=== PATIENT | female | born 1975 | race Caucasian/White ===

== ENCOUNTER 2019-04-28 08:04 | Outpatient (CLI) | payer BC ==
--- NOTE | 2019-05-01 08:01 | MMO ---
Bilateral MAMMO Bilat Screen [facility]. CLINICAL HISTORY: Patient is 43 years old and is seen for screening. The patient has no family history of breast cancer. The patient has no personal history of cancer. VIEWS: The views performed were: bilateral craniocaudal with tomosynthesis and bilateral mediolateral oblique with tomosynthesis. FILMS COMPARED: The present examination has been compared to prior imaging studies performed at [facility] on 03/09/2014, 04/11/2015 and 03/11/2017. MAMMOGRAM FINDINGS: The breasts are heterogeneously dense, which could obscure a lesion on mammography. New grouping of microcalcifications inner right breast mid depth best seen on mlo view. Mag views recommended. In the left breast, there are no suspicious masses, calcifications or areas of architectural distortion. IMPRESSION: FINDING IN THE RIGHT BREAST REQUIRES ADDITIONAL EVALUATION. ADDITIONAL IMAGING. THE RESULTS OF THIS EXAM WERE SENT TO THE PATIENT. ACR BI-RADS Category 0 - Incomplete: Need additional imaging evaluation. [facility] will notify the patient of the need for additional imaging services. MAMMOGRAPHY NOTE: 1. A negative mammogram report should not delay a biopsy if a dominant of clinically suspicious mass is present. 2. Approximately 10% to 15% of breast cancers are not detected by mammography. 3. Adenosis and dense breasts may obscure an underlying neoplasm.
== END 2019-04-28 08:05 | disposition home or self-care (01) ==
LOC: BICMAMMO 08:04
PROVIDERS: ATTEND Family Medicine
DX: Z12.31 Encounter for screening mammogram for malignant neoplasm of breast (principal)
CPT/HCPCS: 77063; 77067

== ENCOUNTER 2019-05-08 12:52 | Outpatient (CLI) | payer BC ==
--- NOTE | 2019-05-08 13:25 | MMO ---
Right Breast MAMMO Unilat Diag [facility]. CLINICAL HISTORY: Patient is 43 years old and is seen for additional evaluation requested at current screening. The patient has no family history of breast cancer. The patient has no personal history of cancer. VIEWS: The views performed were: right craniocaudal spot compression magnification; right mediolateral spot compression magnification; and right mediolateral with tomosynthesis. FILMS COMPARED: The present examination has been compared to prior imaging studies performed at [facility] on 04/28/2019, and at [facility] on 03/09/2014, 04/11/2015 and 03/11/2017. MAMMOGRAM FINDINGS: There are new pleomorphic cluster of calcifications that perist on additional views. IMPRESSION: FINDING IN THE RIGHT BREAST IS SUSPICIOUS. A STEREOTACTIC BREAST BIOPSY IS RECOMMENDED. RESULTS DISCUSSED WITH THE PATIENT AND DR. HUA. THE RESULTS OF THIS EXAM WERE SENT TO THE PATIENT. ACR BI-RADS Category 4 - Suspicious abnormality - biopsy should be considered MAMMOGRAPHY NOTE: 1. A negative mammogram report should not delay a biopsy if a dominant of clinically suspicious mass is present. 2. Approximately 10% to 15% of breast cancers are not detected by mammography. 3. Adenosis and dense breasts may obscure an underlying neoplasm. Reported by: NIKHIL BARLOW MD Electonically Signed: [id number]
== END 2019-05-08 12:53 | disposition home or self-care (01) ==
LOC: BICMAMMO 12:52
PROVIDERS: ATTEND Family Medicine
DX: N64.89 Other specified disorders of breast (principal)
CPT/HCPCS: G0279

== ENCOUNTER → 2019-05-26 | Day surgery (SDC) | payer BC ==
--- NOTE | 2019-05-26 08:39 | MMO ---
MAMMO Brst Bx Stereo History: Breast calcifications Comparison: Mammogram May 08, 2019 Findings: Patient was brought to the stereotactic suite. All questions are answered. Informed consent was obtained. Timeout performed. Patient's right breast was prepped and draped in normal sterile fashion. After adequate anesthesia a total of 8 10-gauge samples were obtained from the breast at the area of calcifications. Patient tolerated procedure well without complication. Of note there is layering of the calcifications in the dependent portion of the examination, suggesti ng milk of calcium, a benign entity. The amount of calcifications in the post clip mammogram were less than the preprocedural mammogram. Impression: 1. Technically successful stereotactic guided breast biopsy. 2. The amount of calcifications in the sample were faint. During the procedure, the calcifications di d layer forming a meniscus suggesting benign milk of calcium.
== END ==
LOC: MAMMO 06:59
PROVIDERS: ATTEND Family Medicine
PROC: 0HBT3ZX Excision of Right Breast, Percutaneous Approach, Diagnostic (ICD-10-PCS; principal; 2019-05-26)
DX: N62 Hypertrophy of breast (principal); R92.1 Mammographic calcification found on diagnostic imaging of breast
CPT/HCPCS: 19081; 76098; 88305; 88341; 88342

== ENCOUNTER 2019-06-17 07:31 | Outpatient (CLI) | payer BC ==
--- NOTE | 2019-06-17 15:03 | MRI ---
MRI BILATERAL BREASTS WITHOUT AND WITH CONTRAST: Date: 06/17/19 COMPARISON: Mammograms and stereotactic biopsy dated 05/26/19, 05/08/19, 04/28/19, and 03/11/17. HISTORY: Atypical lobular hyperplasia associated with right breast biopsy. TECHNIQUE: Multiplanar, multisequence MR images were obtained of the breasts without and with IV contrast. Evalu ation of this exam was done on a [employer] workstation. FINDINGS: Heterogeneously dense to extremely dense breast parenchyma is seen. Mild background parenchymal enhan cement is seen. There is an area of susceptibility artifact in the upper inner left breast which like ly represents the biopsy clip from previous stereotactic biopsy. No significant abnormal enhancement is seen in the right breast. No suspicious mass is seen in the right breast. There is a well circumscribed cyst n the anterior aspect of the left breast measuring 6 mm in greates t dimension. There is a [id number]-[id number] area of enhancement in the upper slightly medial left breast me asuring 5 mm in size. This demonstrates a Type II-Type III enhancement curve. No other abnormal areas of enhancement are seen in the left breast. No enlarged axillary lymph nodes are seen. No internal mammary lymph nodes are identified. The visual ized osseous structures and anterior liver are unremarkable. IMPRESSION: 1. There is a very small [id number]-gnus-[id number] area of enhancement in the left breast, which is likely benig n. BI-RADS Category 3 - probably benign finding. A 6 month follow-up MRI is recommended to ensure sta bility. 2. No abnormal enhancement in the right breast.
[2019-06-17] MEDS ORDERED: Gadobenate Dimeglumine 529 MG/1 ML (20ML VIAL) ONE (15:52)
== END 2019-06-17 07:32 | disposition home or self-care (01) ==
LOC: BICMRI 07:31
PROVIDERS: ATTEND Internal Medicine Hematology & Oncology
DX: N60.81 Other benign mammary dysplasias of right breast (principal)
CPT/HCPCS: A9577; C8908

== ENCOUNTER 2019-12-14 14:02 | Outpatient (CLI) | payer BC ==
--- NOTE | 2019-12-14 17:24 | MRI ---
MRI BILATERAL BREASTS WITHOUT AND WITH CONTRAST: Comparison: 06-17-19 History: Abnormal areas of enhancement in the upper inner left breast on prior MRI. Atypical ----- to the hypoplasia associated with prior breast biopsy. Technique: Multiplanar, multisequence MR images were obtained of the bilateral breasts without and wi th IV contrast. Assessment of this MRI was performed on a [employer] workstation with 3D MIP reformats a nd contrast enhanced images were generated. FINDINGS: Heterogeneously dense to extremely dense breast parenchyma is seen. No significant background parench ymal enhancement is seen. There is a tiny 2-3 mm area of enhancement in the upper aspect of the left breast seen on image 49 of 130. This is smaller than on the prior examination. No other abnormal areas of enhancement are seen in either breast. There is an area of susceptibility artifact in the right breast, likely from prior stereotactic biopsy clip. No axillary adenopathy is seen. No internal mammary lymph nodes are identified. Visualized anterior liver and osseous structures are unremarkable. IMPRESSION: 1. A tiny area of enhancement in the left breast has gotten smaller and is therefore benign. BIRADS c ategory 2 - benign findings. Annual screening mammography is recommended. POS: [facility]
== END 2019-12-14 14:03 | disposition home or self-care (01) ==
LOC: BICMRI 14:02
PROVIDERS: ATTEND Internal Medicine Hematology & Oncology
DX: N60.81 Other benign mammary dysplasias of right breast (principal)
CPT/HCPCS: A9577; C8908

== ENCOUNTER 2020-12-22 07:29 | Outpatient (CLI) | payer BC ==
--- NOTE | 2020-12-22 09:24 | MRI ---
EXAM: MRI of the breasts without and with contrast HISTORY: Precancerous cells removed from right breast in 2018. No current complaints. Lifetime risk o f breast cancer of 27.9%. COMPARISON: 12/14/2019; mammogram 06/20/2020 and 06/17/2019 TECHNIQUE: Multiplanar multisequence MR images were obtained of the breasts without and with IV contr ast. 3-D MIP reformats and contrast enhancement curves were generated on a [employer] workstation. FINDINGS: Heterogeneously dense breast parenchyma is seen. Minimal background parenchymal enhancement is seen. Susceptibility artifact from a biopsy clip is seen in the inner aspect of the right breast. There is a tiny 2 mm focus of enhancement in the upper aspect of the left breast on image 51 of 130. This is less perceptible than on the prior examination. This small area demonstrates a type I enhancement curve. No other areas of enhancement are seen in either breast. No suspicious mass or abnormal enhancement is seen within either breast. No axillary adenopathy is seen. No internal mammary lymph nodes are identified. The visualized liver is unremarkable. The visualized bones are unremarkable. IMPRESSION: BI-RADS Category 2-benign findings. Annual screening mammography is recommended.
== END 2020-12-22 07:30 | disposition home or self-care (01) ==
LOC: BICMRI 07:29
PROVIDERS: ATTEND Internal Medicine Hematology & Oncology
DX: N60.81 Other benign mammary dysplasias of right breast (principal)
CPT/HCPCS: A9577; C8908

== ENCOUNTER 2021-07-26 09:44 | Outpatient (CLI) | payer BC | END 2021-07-26 09:45 | disposition home or self-care (01) | LOC: BICMAMMO 09:44 | PROVIDERS: ATTEND Internal Medicine Hematology & Oncology | DX: Z12.31 Encounter for screening mammogram for malignant neoplasm of breast (principal); Q83.8 Other congenital malformations of breast; Z91.89 Other specified personal risk factors, not elsewhere classified | CPT/HCPCS: 77063; 77067 ==

== ENCOUNTER 2021-07-31 10:23 | Outpatient (CLI) | payer BC | END 2021-07-31 10:24 | disposition home or self-care (01) | LOC: BICMAMMO 10:23 | PROVIDERS: ATTEND Internal Medicine Hematology & Oncology | DX: N63.10 Unspecified lump in the right breast, unspecified quadrant (principal) | CPT/HCPCS: G0279 ==

== ENCOUNTER 2022-01-29 09:28 | Outpatient (CLI) | payer BC | END 2022-01-29 09:29 | disposition home or self-care (01) | LOC: BICMRI 09:28 | PROVIDERS: ATTEND Internal Medicine Hematology & Oncology | DX: N60.81 Other benign mammary dysplasias of right breast (principal) | CPT/HCPCS: A9577; C8908 ==

== ENCOUNTER 2022-07-27 10:46 | Outpatient (CLI) | payer BC, OTHER | END 2022-07-27 10:47 | disposition home or self-care (01) | LOC: BICMAMMO 10:46 | PROVIDERS: ATTEND Internal Medicine Hematology & Oncology | DX: Z12.31 Encounter for screening mammogram for malignant neoplasm of breast (principal) | CPT/HCPCS: 77063; 77067 ==

== ENCOUNTER 2023-01-29 09:37 | Outpatient (CLI) | payer OTHER | END 2023-01-29 09:38 | disposition home or self-care (01) | LOC: BICMRI 09:37 | PROVIDERS: ATTEND Internal Medicine Hematology & Oncology | DX: N60.81 Other benign mammary dysplasias of right breast (principal) | CPT/HCPCS: A9577; C8908 ==

== ENCOUNTER 2023-09-23 09:44 | Outpatient (CLI) | payer OTHER | END 2023-09-23 09:45 | disposition home or self-care (01) | LOC: BICMAMMO 09:44 | PROVIDERS: ATTEND Internal Medicine Hematology & Oncology | DX: Z12.31 Encounter for screening mammogram for malignant neoplasm of breast (principal) | CPT/HCPCS: 77063; 77067 ==